=== PATIENT | male | born 1960 | race Caucasian/White ===

== ENCOUNTER 2016-06-11 12:43 | Inpatient (IN) | payer OTHER ==
[~2016-06-11] VITALS: Ht 182.9 cm; Wt 124.9 kg
[2016-06-29] MEDS ORDERED: GABA600T PO (09:16)
[2016-06-29] MEDS ORDERED: OMEP20TA PO (09:16)
[2016-06-29] MEDS ORDERED: ASPI1TAB69 PO (09:16)
[2016-06-29] MEDS ORDERED: JANU50TA8 PO (09:16)
[2016-06-29] MEDS ORDERED: PRAV80TA2 PO (09:16)
[2016-06-29] MEDS ORDERED: KLON2TAB PO (09:16)
[2016-06-29] MEDS ORDERED: LISI20TA PO (09:16)
[2016-06-29] MEDS ORDERED: FURO40TA PO (09:16)
[2016-06-29] MEDS ORDERED: GNP5TAB6 PO (09:16)
[2016-06-29] MEDS ORDERED: FINA5TAB2 PO (09:16)
[2016-06-29] MEDS ORDERED: MULT-135 PO (09:17)
[2016-06-29] MEDS ORDERED: SPIR25TA PO (09:17)
[2016-06-29] MEDS ORDERED: GLIP-157 PO (09:17)
[2016-06-29] MEDS ORDERED: POTA-245 PO (09:17)
[2016-06-29] MEDS ORDERED: CLON0.1T PO (09:17)
[2016-06-30] MEDS ORDERED: SODIUM CHLORID 0.9% 500 ML IV PRN (05:30)
[2016-06-30] MEDS ORDERED: POVIDONE IODINE 5% (ANTISEPSIS KIT) 4 APPLICATIONS EACH NARE PRN (05:30)
[2016-06-30] MEDS ORDERED: METOPROLOL TARTRATE 25 MG TAB PO PRN (05:30)
[2016-06-30] MEDS ORDERED: LACTATED RINGER'S 1000 ML IV PRN (05:30)
[2016-06-30] MEDS ORDERED: CHLORHEXIDINE GLUCONATE 2 % 1 PACK (2 CLOTHS) TOPICAL PRN (05:30)
[2016-06-30] MEDS ORDERED: INSULIN HUMAN REGULAR 1,000 UNITS/10 ML VIAL SQ PRN (05:30)
[2016-06-30 05:57] VITALS: BP 137/76; PULSE 63; RESP 20; TEMP 97.7; O2SAT 98
[2016-06-30] MEDS ORDERED: DEXAMETHASONE SOD PHOS 20 MG/5 ML VIAL ONE (06:06)
[2016-06-30] MEDS ORDERED: SODIUM CHLOR 0.9% 250 ML INJ 250 ML ONE (06:06)
[2016-06-30] MEDS ORDERED: VANCOMYCIN HCL 1000 MG VIAL ONE (06:07)
[2016-06-30] MEDS ORDERED: SODIUM CHLORIDE 0.9% IV SCH ×2 (06:15→10:30)
[2016-06-30] MEDS ORDERED: DEXAMETHASONE SOD PHOS 20 MG/5 ML VIAL IV PUSH SCH (06:15)
[2016-06-30] MEDS ORDERED: EXPAREL PERI-ARTICULAR INJECTION (TOTAL VOL. 60 ML) P-ARTICULR SCH ×2 (06:15)
[2016-06-30] MEDS ORDERED: VANCOMYCIN 1000 MG/NS 250 ML (for <70 kg) IV SCH ×2 (06:15)
[2016-06-30] MEDS ORDERED: TRANEXAMIC ACID IV SCH ×2 (06:15→10:30)
[2016-06-30] MEDS ORDERED: GENTAMICIN SULFATE 80 MG/2 ML VIAL ONE (06:21)
[2016-06-30] MEDS ORDERED: MIDAZOLAM HCL 2 MG/2 ML VIAL ONE (06:42)
[2016-06-30] MEDS ORDERED: fentaNYL CITRATE 250 MCG/5 ML AMP ONE (06:42)
[2016-06-30] MEDS ORDERED: FAMOTIDINE 20 MG/2 ML VIAL ONE (06:42)
--- NOTE | 2016-06-30 06:47 | HHI.DCPOC ---
Discharge Care Plan Diagnosis: (1) Osteoarthritis of right hip (2) Status post total hip replacement, right Your Health Problems Are: Difficulty with ADL Goals to Promote Your Health * To prevent worsening of your condition and complications * To maintain your health at the optimal level Directions to Meet Your Goals Take your medications as prescribed Follow your dietary instruction Follow activity as directed Keep your appointments as scheduled Take your immunizations and boosters as scheduled If your symptoms worsen call your PCP, if no PCP go to Urgent Care Center or Emergency Room Smoking is Dangerous to Your Health. Avoid second hand smoke Call the 24-hour hour crisis hotline for domestic abuse at Sylvester Dejesus Jun 30, 2016 06:47
--- NOTE | 2016-06-30 06:48 | HHI.FF ---
Face to Face Verification Diagnosis: (1) Osteoarthritis of right hip (2) Status post total hip replacement, right Physical Therapy Gait training, Transfer training, bed to chair Hip: Total hip Right LE Weight Bearing: WB as tolerated Right LE Range of Motion: Active ROM Nursing Nursing: Mel teaching, Dressing changes Dressing Changes: Daily dressing change I have seen patient Zach Valle, III on 06/30/16. My clinical findings support the need for the requested home health care services because: Limited ability to care for self High risk of falls I certify that my clinical findings support that this patient is homebound because: Post-op weakness Unsteady gait/balance Sylvester Dejesus Jun 30, 2016 06:48
[2016-06-30] MEDS ORDERED: COMMODE 3-IN-11 MIS (06:50)
[2016-06-30] MEDS ORDERED: WALKER WHEELS/F1 MIS (06:50)
[2016-06-30] MEDS ORDERED: ceFAZolin INJ 1,000 MG VIAL IV ONE (07:23)
[2016-06-30] MEDS ORDERED: ceFAZolin 2 GM PREMIX 50 ML ONE (08:00)
--- NOTE | 2016-06-30 09:23 | PD.OP ---
cc: Oneil Kan MD Operative Report Date of Surgery: Jun 30, 2016 Preoperative Diagnosis: Right hip avascular necrosis. Right hip osteoarthritis. Postoperative Diagnosis: Same Procedure: Right hip, Conversion of previous surgery to total hip arthroplasty Anesthesia: Gen. Surgeon: Oneil Kan Supervisor Hydrochloric Area(s): KEARA Szymanski The surgical procedure was assisted by my Advanced Registered Nurse Practitioner. My ACCOUNT CLERK presence was necessary throughout this case for the manipulation and positioning of the surgical extremity. My ACCOUNT CLERK was assisting me throughout the duration of this procedure. The skill set of an Advance Registered Nurse Practitioner was medically necessary to complete this procedure. During the surgical case, the surgical resident was working at the back table and the Advance Registered Nurse Practitioner was directly assisting me. Operation and Findings: IMPLANT DESCRIPTION: 1. [place] Gription Cup, acetabular size 56. 2. [place] AltrX polyethylene, neutral. 4. [place] femoral stem size 11, no collar, high offset. 5. Femoral head/neck ceramic, +5, 36. ESTIMATED BLOOD LOSS: 300 cc. JUSTIFICATION FOR PROCEDURE: The patient has a history of avascular necrosis of the right hip. The patient had previously undergone core decompression. He has developed arthritic change as well. There is an attached conservative measures pathway form in the chart that describes the nonoperative measures that were undertaken prior to consideration of surgical management. The patient understood the risks and benefits of surgical management. See my office notes for further details. PROCEDURE: The patient was brought back to the operative theatre. Adequate anesthesia was obtained. The patient received intravenous vancomycin and Ancef. The patient had a test dose of Ancef prior to getting the administration of the full dose. The patient was carefully placed on the operative table. The lower extremity was prepped and draped in the usual sterile fashion. Fluoroscopic images were obtained. We made a standard anterior incision over the hip. We dissected through the TFL fascia, exposing the anterior capsule. Arthrotomy was performed in a T-shaped fashion. The capsule was tagged with a #2 FiberWire. End-stage arthritis was identified. Osteotomy was performed through the femoral neck exposing the acetabulum. Remnants of the labrum were resected and osteophytes were removed. We sequentially reamed the acetabulum. We trialed the hip and placed the final cup into position. This was done under fluoroscopic guidance to obtain the appropriate inclination and anteversion. A manhole cover was placed into the acetabular component. We then placed the final polyethylene into position and confirmed that it was well seated. Capsular attachments on the calcar and the inner aspect of the greater trochanter were resected. On the proximal aspect of the femur we used a rongeur , box osteotome, canal finder, sequential broaches and lateralizing rasp. We calcar planed the proximal femur. Then thoroughly irrigated the wound. We trialed the hip with the appropriate size stem. We placed the final stem in to position and trialed again. The hip was stable while it was externally rotated 70 degrees when the leg was lowered to the floor. The final head was applied, and final fluoroscopic images were obtained. The wound was thoroughly irrigated again. Interarticular injection of liposomal bupivacaine was given. The capsule was closed with #2 FiberWire and #1 Vicryl. The deep fascia was closed with a #2 Stratafix, followed by 2-0 Vicryl in the skin and galileo. Postop plan is to weight-bear as tolerated. DVT prophylaxis will be performed with SCDs, ARIELLA blank, early mobilization, and Lovenox followed by aspirin. Oneil Kan MD Jun 30, 2016 09:23
[2016-06-30] MEDS ORDERED: ASPI325T PO (09:24)
[2016-06-30] MEDS ORDERED: NORC5TAB PO (09:24)
[2016-06-30] MEDS ORDERED: ENOX40P SQ (09:24)
--- NOTE | 2016-06-30 09:24 | RADRPT ---
EXAM DATE/TIME: 06/30/2016 07:25 [facility] COMPARISON: No previous studies available for comparison. INDICATIONS : Right total hip replacement. MEDICAL HISTORY : None. SURGICAL HISTORY : None. ENCOUNTER: Initial ACUITY: 1 day PAIN SCORE: Non-responsive. LOCATION: Right hip. FINDINGS: 4 spot intraoperative fluoroscopic views of the right hip demonstrate a right total hip arthroplasty. Femoral and acetabular components appear well-seated. CONCLUSION: Postop right hip arthroplasty. Erich Canela MD on June 30, 2016 at 9:22 Board Certified Radiologist. This report was verified electronically.
[2016-06-30] MEDS ORDERED: BISACODYL 10 MG SUPP RECTAL PRN (09:30)
[2016-06-30] MEDS ORDERED: MORPHINE SULFATE 4 MG/ML INJ IV PUSH PRN (09:30)
[2016-06-30] MEDS ORDERED: NALOXONE HCL 0.4 MG/ML AMP IV PRN (09:30)
[2016-06-30] MEDS ORDERED: diphenhydrAMINE HCL 50 MG/ML VIAL IV PRN (09:30)
[2016-06-30] MEDS ORDERED: Post-op Orders (for Pharmacy) MISC XX ONE (09:30)
[2016-06-30] MEDS ORDERED: ALUMINUM/MAGNESIUM/SIMETH 30 ML CUP PO PRN (09:30)
[2016-06-30] MEDS ORDERED: SODIUM CHLORIDE 0.9% FLUSH 5 ML FLUSH IVF PRN (09:30)
[2016-06-30] MEDS ORDERED: ONDANSETRON HCL 4 MG/2 ML VIAL IVP PRN (09:30)
[2016-06-30] MEDS ORDERED: ZOLPIDEM TARTRATE 5 MG TAB PO PRN (09:30)
[2016-06-30] MEDS ORDERED: MAGNESIUM HYDROXIDE SUSP 30 ML CUP PO PRN (09:30)
[2016-06-30] MEDS ORDERED: *morphine SULFATE 8 MG/ML PERIprocedure ONLY ONE ×2 (10:45→10:59)
--- NOTE | 2016-06-30 11:02 | RADRPT ---
EXAM DATE/TIME: 06/30/2016 10:22 [facility] COMPARISON: No previous studies available for comparison. INDICATIONS : Post op left hip surgery. MEDICAL HISTORY : Unobtainable. SURGICAL HISTORY : Unobtainable. ENCOUNTER: Initial ACUITY: 1 day PAIN SCORE: Non-responsive. LOCATION: Right hip. FINDINGS: AP view of the pelvis with 2 views of the right hip demonstrate no fracture or dislocation. Mineraliz ation is within normal limits. Hardware is present at the right hip related to total hip arthroplasty . Components are noncemented. There is adjacent soft tissue air, as expected. Skin galileo are presen t. There is mild to moderate left hip joint osteoarthritis. CONCLUSION: Expected changes are present following recent right total hip arthroplasty. No acute finding is ident ified. Kash Carrera MD on June 30, 2016 at 10:59 Board Certified Radiologist. This report was verified electronically.
[2016-06-30 11:30] VITALS: BP 114/58; PULSE 90; RESP 16; TEMP 97.2; O2SAT 94
[2016-06-30] MEDS ORDERED: LACTATED RINGER'S 1000 ML INJ 1,000 ML IV ONE (12:10)
[2016-06-30] MEDS ORDERED: NEOSTIGMINE 3 MG/3 ML SYR IV ONE (12:10)
[2016-06-30] MEDS ORDERED: PROPOFOL 200 MG/20 ML AMP IV ONE (12:10)
[2016-06-30] MEDS ORDERED: PHENYLEPH/NS 1000 MCG/10 ML SYR IV ONE (12:10)
[2016-06-30] MEDS ORDERED: ONDANSETRON HCL 4 MG/2 ML VIAL IV PUSH ONE (12:10)
[2016-06-30] MEDS: GABAPENTIN 300 MG CAP PO SCH ×2 (12:33→17:21)
[2016-06-30] MEDS: ACETAMINOPHEN/HYDROcodone 325 MG/5 MG TAB PO PRN ×3 (12:33→21:33)
[2016-06-30] MEDS: cloNIDine HCL 0.1 MG TAB PO SCH ×2 (12:33→17:21)
[2016-06-30] MEDS ORDERED: GLUCAGON 1 MG/ML VIAL OTHER PRN (14:15)
[2016-06-30] MEDS ORDERED: DEXTROSE 50% IN WATER 50 ML VIAL(D50) IV PUSH PRN (14:15)
--- NOTE | 2016-06-30 14:15 | PD.CONS ---
[facility] Request[facility] By Dr. Kan Reason for Consult Medical management Primary Care Physician Non-Staff Diagnoses: (1) Osteoarthritis of right hip (2) Status post total hip replacement, right (3) Coronary artery disease (4) Diabetes mellitus (5) Hyperlipidemia (6) Hypertension (7) Sleep apnea History of Present Illness The patient is a 56-year-old male seen in consultation for medical management following right total hip arthroplasty. The patient has history of diabetes, coronary artery disease, hypertension, hyperlipidemia, and sleep apnea. He states that his pain is currently well controlled. Has no specific complaints at this time. Review of Systems Constitutional: DENIES: Fever, Chills, Night Sweats Eyes: DENIES: Blurred vision, Vision loss Ears, nose, mouth, throat: DENIES: Hearing loss Respiratory: DENIES: Cough, Wheezing, Sputum production, Shortness of breath Cardiovascular: DENIES: Chest pain, Palpitations, Dyspnea on Exertion, Lower Extremity Edema Gastrointestinal: DENIES: Abdominal pain, Constipation, Diarrhea, Nausea, Vomiting Genitourinary: DENIES: Urinary frequency, Urinary incontinence, Urgency, Hematuria, Dysuria, Nocturia Musculoskeletal: COMPLAINS OF: Joint pain, DENIES: Muscle aches Integumentary: DENIES: Pruritus, Rash Hematologic/lymphatic: DENIES: Bruising Neurologic: DENIES: Headache Past Family Social History Allergies: Coded Allergies: Adhesives (Verified Allergy, Severe, RASH, 06/30/16) Latex (Verified Allergy, Severe, RASH, 06/30/16) Penicillin (Verified Allergy, Severe, HIVES, 06/30/16) Past Medical History Hypertension Hyperlipidemia Osteoarthritis History of arrhythmia Diabetes mellitus Sleep apnea Insomnia Past Surgical History Cardiac catheterization, ablation Bilateral knee replacements Right hip decompression surgery Reported Medications See list Family History Rheumatoid arthritis Diabetes Hypertension Social History Denies alcohol, tobacco, or illicit drug use. Physical Exam Vital Signs Vital Signs Date Time Temp Pulse Resp B/P Pulse Ox O2 Delivery O2 Flow Rate FiO2 06/30/16 13:36 18 06/30/16 11:30 97.2 90 16 114/58 94 06/30/16 11:00 98.4 89 12 136/76 96 Nasal Cannula 2.5 06/30/16 10:45 87 12 138/77 97 Nasal Cannula 06/30/16 10:30 88 12 139/68 96 Nasal Cannula 2.5 06/30/16 10:15 93 12 153/89 96 Blow By 7 Nasal Cannula 06/30/16 10:00 100 14 149/87 93 Blow By 7 Nasal Cannula 06/30/16 09:53 97.0 102 15 152/73 92 Blow By 7 Nasal Cannula 06/30/16 05:57 97.7 63 20 137/76 98 Physical Exam GENERAL: Well-nourished, well-developed male in no acute distress. Sitting up in a chair. HEENT: Normocephalic, atraumatic. Pupils equal, round and reactive. Extraocular movements intact. No scleral icterus. No injection or drainage. Oropharynx is clear. Mucous membranes are moist. CARDIOVASCULAR: Regular rate and rhythm without murmurs, gallops, or rubs. RESPIRATORY: Clear to auscultation. No wheezes, rales, or rhonchi. Breathing is non-labored. GASTROINTESTINAL: Abdomen soft, non-tender, nondistended. EXTREMITIES: Trace bilateral lower extremity edema. No calf tenderness. SCDs. PSYCH: Alert and oriented x 3. Laboratory Laboratory Tests Test 06/30/16 06:00 Blood Type A POSITIVE Antibody Screen NEGATIVE Blood Bank Comment Imaging Last Impressions Hip and Pelvis X-Ray 06/30/16 0918 Signed Impressions: Service Date/Time: Thursday, June 30, 2016 10:22 - CONCLUSION: Expected changes are present following recent right total hip arthroplasty. No acute finding is identified. Kash Carrera MD Hip X-Ray 06/30/16 0000 Signed Impressions: Service Date/Time: Thursday, June 30, 2016 07:25 - CONCLUSION: Postop right hip arthroplasty. Erich Canela MD Assessment and Plan Assessment and Plan 1. Osteoarthritis, right hip: Status post right total hip arthroplasty, POD #0. Management per orthopedic surgery. Continue pain control, bowel regimen. 2. Diabetes mellitus: Monitor Accu-Cheks and cover with sliding scale insulin. Continue glipizide, metformin. Diabetic diet. 3. Hyperlipidemia: Continue statin. 4. Hypertension: Continue lisinopril, clonidine. 5. Lower extremity edema, chronic: Continue furosemide, spironolactone. 6. History of arrhythmia: Currently asymptomatic. Heart regular on exam. 7. Sleep apnea: Patient brought his CPAP machine. 8. DVT prophylaxis: Lovenox. Yves Paris MD Jun 30, 2016 14:15
[2016-06-30 16:00] VITALS: BP 123/62; PULSE 74; RESP 16; TEMP 96; O2SAT 98
[2016-06-30 16:18] VITALS: O2SAT 97
[2016-06-30] MEDS: metFORMIN HCL 500 MG TAB PO SCH (17:21)
[2016-06-30] MEDS: INSULIN ASPART SUPPLEMENTAL SCALE SQ SCH ×2 (17:22→21:34)
[2016-06-30] MEDS: SODIUM CHLOR 0.9% 1000 ML INJ 1,000 ML IV SCH (19:18)
[2016-06-30 19:54] VITALS: BP 139/74; PULSE 76; RESP 16; TEMP 96.6
[2016-06-30] MEDS ORDERED: NON-FORMULARY DRUG (Sitagliptin-Metformin (Janumet) 1 TAB) PO SCH (21:00)
[2016-06-30] MEDS: POTASSIUM CHLORIDE 20 MEQ CONTROLLED RELEASE TAB PO SCH (21:32)
[2016-06-30] MEDS: SODIUM CHLORIDE 0.9% FLUSH 5 ML FLUSH IVF SCH (21:32)
[2016-06-30] MEDS: FUROSEMIDE 40 MG TAB PO SCH (21:32)
[2016-06-30] MEDS: clonazePAM 1 MG TAB PO SCH (21:33)
[2016-07-01] MEDS: SODIUM CHLOR 0.9% 1000 ML INJ 1,000 ML IV SCH ×2 (00:01→15:18)
[2016-07-01 00:09] VITALS: BP 137/68; PULSE 83; RESP 19; TEMP 97.9; O2SAT 96
[2016-07-01] MEDS: POVIDONE IODINE 7.5% SCRUB 118 ML BOTTLE TOPICAL SCH (02:28)
[2016-07-01] MEDS: ACETAMINOPHEN/HYDROcodone 325 MG/5 MG TAB PO PRN ×4 (03:32→20:17)
[2016-07-01 03:35] VITALS: BP 134/71; PULSE 78; RESP 19; TEMP 97.5; O2SAT 98
[2016-07-01] MEDS: GABAPENTIN 300 MG CAP PO SCH ×4 (05:54→17:04)
[2016-07-01] MEDS: INSULIN ASPART SUPPLEMENTAL SCALE SQ SCH ×4 (05:55→20:16)
[2016-07-01 07:36] LABS: HEMATOCRIT 31.7 % (39.0-51.0); MEAN CELL VOLUME 82.9 FL (80.0-100.0); MEAN CORPUSCULAR HEMOGLOBIN 28.8 PG (27.0-34.0); MEAN CORPUSCULAR HGB CONC 34.8 % (32.0-36.0); PLATELET COUNT 328 TH/MM3 (150-450); RED BLOOD COUNT 3.82 MIL/MM3 (4.50-5.90); RED CELL DISTRIBUTION WIDTH 13.1 % (11.6-17.2); REVIEW FLAG FINAL; WHITE BLOOD COUNT 10.7 TH/MM3 (4.0-11.0)
[2016-07-01] MEDS ORDERED: DEXAMETHASONE SOD PHOS 20 MG/5 ML VIAL IV ONE (07:45)
[2016-07-01 08:00] VITALS: BP 132/68; PULSE 79; RESP 18; TEMP 96.7; O2SAT 100
[2016-07-01] MEDS: metFORMIN HCL 500 MG TAB PO SCH ×2 (08:15→17:04)
[2016-07-01] MEDS: glipiZIDE 5 MG TAB PO SCH (08:15)
[2016-07-01] MEDS: SPIRONOLACTONE 25 MG TAB PO SCH (08:15)
[2016-07-01] MEDS: FUROSEMIDE 40 MG TAB PO SCH ×2 (08:15→20:16)
[2016-07-01] MEDS: LISINOPRIL 20 MG TAB PO SCH (08:15)
[2016-07-01] MEDS: POTASSIUM CHLORIDE 20 MEQ CONTROLLED RELEASE TAB PO SCH ×2 (08:16→20:16)
[2016-07-01] MEDS: PRAVASTATIN SOD 80 MG TAB PO SCH (08:16)
[2016-07-01] MEDS: cloNIDine HCL 0.1 MG TAB PO SCH ×3 (08:16→17:04)
[2016-07-01] MEDS: PANTOPRAZOLE SOD 20 MG DELAYED RELEASE TAB PO SCH (08:16)
[2016-07-01] MEDS: SODIUM CHLORIDE 0.9% FLUSH 5 ML FLUSH IVF SCH ×2 (08:19→20:22)
[2016-07-01] MEDS: FINASTERIDE 5 MG TAB PO SCH (08:27)
[2016-07-01] MEDS ORDERED: NON-FORMULARY DRUG (Lisinopril-Hctz 2 TAB) PO SCH (09:00)
[2016-07-01] MEDS: ENOXAPARIN SODIUM 40 MG/0.4 ML SYRINGE SQ SCH (09:24)
[2016-07-01 12:01] VITALS: BP 123/70; PULSE 76; RESP 18; TEMP 97.6; O2SAT 97
--- NOTE | 2016-07-01 13:39 | PD.ORT.PN ---
Subjective Post Op Day #: 1 Subjective Remarks Patient is resting comfortably in bed with minimal pain. Patient is requesting to go home with home health today. Objective Vitals Vital Signs Date Time Temp Pulse Resp B/P Pulse Ox O2 Delivery O2 Flow Rate FiO2 07/01/16 12:01 97.6 76 18 123/70 97 07/01/16 08:00 96.7 79 18 132/68 100 07/01/16 03:35 97.5 78 19 134/71 98 07/01/16 00:09 97.9 83 19 137/68 96 06/30/16 19:54 96.6 76 16 139/74 06/30/16 18:19 18 06/30/16 16:18 97 Nasal Cannula 2.00 06/30/16 16:00 96.0 74 16 123/62 98 I/O 06/30/16 06/30/16 06/30/16 07/01/16 07/01/16 07/01/16 07:00 15:00 23:00 07:00 15:00 23:00 Intake Total 2323 ml 989 ml 635 ml Output Total 1695 ml Balance 628 ml 989 ml 635 ml Intake Oral 720 ml 500 ml IV Total 523 ml 269 ml 135 ml Other 1800 ml Output Urine Total 1295 ml Estimated Blood Loss 400 ml # Voids 3 2 # Bowel Movements 0 0 Result Diagram: 07/01/16 0652 Procedures Right SIMA Objective Remarks The patient's dressing is C/D/I. EHL/TA/G intact. 2+ pedal pulse. Mild swelling. + SILT. Calf is soft and nontender. Assessment & Plan Ortho Post Op Day #: 1 Problem List: Assessment and Plan POD #1: Right SIMA 1. WBAT RLE 2. Lovenox for DVT prophylaxis 3. Ice to the right hip PRN 4. Stable for discharge home with home health today. Sylvester Dejesus Jul 01, 2016 13:39
[2016-07-01 16:00] VITALS: BP 115/50; PULSE 78; RESP 18; TEMP 97.4; O2SAT 97
[2016-07-01 19:55] VITALS: BP 115/74; PULSE 72; RESP 18; TEMP 96.9; O2SAT 99
[2016-07-01] MEDS: DOCUSATE SODIUM 100 MG CAP PO SCH (20:17)
[2016-07-01] MEDS: MULTIVITAMINS/MINERALS THERAPEUTIC TAB PO SCH (20:18)
[2016-07-01] MEDS: clonazePAM 1 MG TAB PO SCH (20:19)
[2016-07-02] VITALS: BP 130/65; PULSE 73; RESP 18; TEMP 96.5; O2SAT 99
[2016-07-02] MEDS: GABAPENTIN 300 MG CAP PO SCH ×3 (00:17→11:49)
[2016-07-02] MEDS: clonazePAM 1 MG TAB PO SCH (00:17)
[2016-07-02] MEDS: ACETAMINOPHEN/HYDROcodone 325 MG/5 MG TAB PO PRN ×3 (00:21→12:07)
[2016-07-02] MEDS: SODIUM CHLOR 0.9% 1000 ML INJ 1,000 ML IV SCH (01:11)
[2016-07-02] MEDS: POVIDONE IODINE 7.5% SCRUB 118 ML BOTTLE TOPICAL SCH (03:38)
[2016-07-02 05:30] LABS: HEMATOCRIT 29.1 % (39.0-51.0); MEAN CORPUSCULAR HEMOGLOBIN 28.1 PG (27.0-34.0); MEAN CORPUSCULAR HGB CONC 33.9 % (32.0-36.0); PLATELET COUNT 331 TH/MM3 (150-450); RED BLOOD COUNT 3.51 MIL/MM3 (4.50-5.90); RED CELL DISTRIBUTION WIDTH 13.1 % (11.6-17.2); REVIEW FLAG FINAL; WHITE BLOOD COUNT 12.7 TH/MM3 (4.0-11.0)
[2016-07-02] MEDS: INSULIN ASPART SUPPLEMENTAL SCALE SQ SCH ×2 (05:55→11:00)
[2016-07-02] MEDS: LISINOPRIL 20 MG TAB PO SCH (07:56)
[2016-07-02] MEDS: ENOXAPARIN SODIUM 40 MG/0.4 ML SYRINGE SQ SCH (07:56)
[2016-07-02] MEDS: SPIRONOLACTONE 25 MG TAB PO SCH (07:57)
[2016-07-02] MEDS: metFORMIN HCL 500 MG TAB PO SCH (07:57)
[2016-07-02] MEDS: DOCUSATE SODIUM 100 MG CAP PO SCH (07:57)
[2016-07-02] MEDS: PANTOPRAZOLE SOD 20 MG DELAYED RELEASE TAB PO SCH (07:57)
[2016-07-02] MEDS: FINASTERIDE 5 MG TAB PO SCH (07:58)
[2016-07-02] MEDS: cloNIDine HCL 0.1 MG TAB PO SCH ×2 (07:58→12:06)
[2016-07-02] MEDS: glipiZIDE 5 MG TAB PO SCH (07:58)
[2016-07-02] MEDS: FUROSEMIDE 40 MG TAB PO SCH (07:58)
[2016-07-02] MEDS: MULTIVITAMINS/MINERALS THERAPEUTIC TAB PO SCH (07:58)
[2016-07-02] MEDS: POTASSIUM CHLORIDE 20 MEQ CONTROLLED RELEASE TAB PO SCH (07:58)
[2016-07-02] MEDS: PRAVASTATIN SOD 80 MG TAB PO SCH (07:59)
[2016-07-02 08:00] VITALS: BP 142/64; PULSE 69; RESP 18; TEMP 96.3; O2SAT 100
[2016-07-02] MEDS: SODIUM CHLORIDE 0.9% FLUSH 5 ML FLUSH IVF SCH (08:00)
[2016-07-02 12:21] VITALS: BP 139/54; PULSE 67
--- NOTE | 2016-07-04 22:44 | HHI.DS ---
Discharge Summary Admission Date Jun 30, 2016 at 05:08 Discharge Date: Jul 02, 2016 Admitting Diagnosis Avascular necrosis of the right hip Status post total hip replacement, right. Diagnosis: (1) Status post total hip replacement, right Diagnosis: Principal (2) AVN (avascular necrosis of bone) Diagnosis: Principal Procedures Right SIMA Brief History This is a 56 year old male patient with avascular necrosis of the right hip. CBC/BMP: 07/02/16 0501 Significant Findings Laboratory Tests Test 07/02/16 05:01 White Blood Count 12.7 TH/MM3 (4.0-11.0) Red Blood Count 3.51 MIL/MM3 (4.50-5.90) Hemoglobin 9.9 GM/DL (13.0-17.0) Hematocrit 29.1 % (39.0-51.0) PE at Discharge The patient's dressing is C/D/I. EHL/TA/G intact. 2+ pedal pulse. Mild swelling. + SILT. Calf is soft and nontender. Hospital Course The patient was admitted to the hospital for avascular necrosis of the right hip to have a right SIMA. The patient's surgery went well without complication. The patient was placed on a diabetic diet and is WBAT on the right LE. The patient was discharged home with home health and will f/u with Dr. Kan in 1- 2 weeks. Pt Condition on Discharge: Stable Discharge Disposition: Disch w/ Home Health Serv Discharge Instructions Diet Instructions: Diabetic Diet Activities You Can Perform: Weight Bearing as Rebecca Activities to Avoid: Strenuous Activity Follow up Referrals: Orthopedics with Oneil Kan MD New Medications: Aspirin (Aspirin) 325 Mg Tab 325 MG PO DAILY Start Aspirin after Lovenox is completed. Prevent Blood Clot # 30 Ref 0 TAB Commode 3-in-1 (Commode 3-in-1) 1 Mis Mis 1 EA .ROUTE DIRECTED #1 Ref 0 EA Enoxaparin Inj (Lovenox Inj) 40 Mg/0.4 Ml Syr 40 MG SQ DAILY Start Aspirin after Lovenox is completed. Blood Clot Prevention # 10 Ref 0 SYRINGE Hydrocodone-Acetaminophen ([place]) 5-325 mg Tab 1-2 TAB PO Q4H PRN PAIN #60 Ref 0 TAB Walker with Front Wheels (Walker with Front Wheels) 1 Mis Mis 1 EA .ROUTE DIRECTED #1 Ref 0 EA Continued Medications: Clonazepam (Klonopin) 2 Mg Tab 2 MG PO HS #60 Ref 0 TAB Clonidine (Clonidine) 0.1 Mg Tab 0.1 MG PO TID Blood Pressure Management #60 Ref 0 TAB Finasteride (Finasteride) 5 Mg Tab 5 MG PO DAILY Do not crush. Manage Prostate Problems #30 Ref 0 TAB Furosemide (Furosemide) 40 Mg Tab 40 MG PO BID #60 Ref 0 TAB Gabapentin (Gabapentin) 600 Mg Tab 600 MG PO Q6HR #90 Ref 0 TAB Glipizide ER (Glipizide XL) 5 Mg Iesha 5 MG PO DAILY Take with breakfast or first main meal of the day Blood Sugar Management #30 Ref 0 TAB Lisinopril-Hctz (Lisinopril-Hctz) 20-12.5 Mg Tab 2 TAB PO DAILY Blood Pressure Management #30 Ref 0 TAB Melatonin (Gnp Melatonin Maximum Str) 5 Mg Tab 1 TAB PO HS Multiple Vitamin (Multi Vitamin) 1 Tab Tab 1 TAB PO DAILY TAB Omeprazole (Omeprazole) 20 Mg Tab 20 MG PO DAILY #30 Ref 0 TAB Potassium Chloride Microencaps (Klor-Con M20) 20 Meq Tab 20 MEQ PO Q12HR Electrolyte Replacement #60 Ref 0 TAB Pravastatin (Pravastatin) 80 Mg Tab 80 MG PO DAILY Cholesterol Management #30 Ref 0 TAB Sitagliptin-Metformin (Janumet) 50-1,000 Mg Tab 1 TAB PO BID Blood Sugar Management #60 Ref 0 TAB Spironolactone (Spironolactone) 25 Mg Tab 25 MG PO DAILY #30 Ref 0 TAB Discontinued Medications: Aspirin (Aspirin) 81 Mg Tabdr 81 MG PO DAILY TAB Sylvester Dejesus Jul 04, 2016 22:44
== END 2016-07-02 12:55 | disposition home or self-care (01) | DRG 470 ==
LOC: HSDI 06-30 05:08 → N06A 06-30 11:30 → N06B 07-01 15:33 → N06A 07-01 15:34
PROVIDERS: ADMIT Orthopaedic Surgery; ATTEND Orthopaedic Surgery
PROC: 0SR904A Replacement of Right Hip Joint with Ceramic on Polyethylene Synthetic Substitute, Uncemented, Open Approach (ICD-10-PCS; principal; 2016-06-30 06:56)
DX: M87.9 Osteonecrosis, unspecified (principal); M16.11 Unilateral primary osteoarthritis, right hip; G62.9 Polyneuropathy, unspecified; I10 Essential (primary) hypertension; E78.5 Hyperlipidemia, unspecified; E11.9 Type 2 diabetes mellitus without complications; Z79.84 Long term (current) use of oral hypoglycemic drugs; D64.9 Anemia, unspecified; R00.0 Tachycardia, unspecified; M54.9 Dorsalgia, unspecified; K21.9 Gastro-esophageal reflux disease without esophagitis; E66.9 Obesity, unspecified; Z68.37 Body mass index [BMI] 37.0-37.9, adult; I25.10 Atherosclerotic heart disease of native coronary artery without angina pectoris; G47.30 Sleep apnea, unspecified; R60.0 Localized edema; G47.00 Insomnia, unspecified; Z96.653 Presence of artificial knee joint, bilateral
CPT/HCPCS: 73502; 76000; 82948; 85027; 86850; 86900; 86901; 88304; 88305; 88311; 94150; C1776; C9290; J0690; J1100; J1580; J1650; J1815; J2250; J2270; J2370; J2405; J2710; J3010; J3370; J7050; J7120